=== PATIENT | female | born 1950 | race African-American/Black ===

== ENCOUNTER 2017-05-04 08:00 | Outpatient (CLI) | payer BC | END 2017-05-04 08:01 | disposition home or self-care (01) | LOC: BICULT 08:00 | PROVIDERS: ATTEND Internal Medicine | DX: N18.3 Chronic kidney disease, stage 3 (moderate) (principal) | CPT/HCPCS: 76770 ==

== ENCOUNTER 2017-05-12 08:48 | Outpatient (CLI) | payer BC | END 2017-05-12 08:49 | disposition home or self-care (01) | LOC: BICMAMMO 08:48 | PROVIDERS: ATTEND Internal Medicine | DX: Z12.31 Encounter for screening mammogram for malignant neoplasm of breast (principal); R92.1 Mammographic calcification found on diagnostic imaging of breast; Z80.3 Family history of malignant neoplasm of breast | CPT/HCPCS: 77063; 77067 ==

== ENCOUNTER 2017-06-22 07:50 | Outpatient (CLI) | payer BC ==
--- NOTE | 2017-06-22 11:49 | MRI ---
BRAIN MRI WITHOUT CONTRAST: HISTORY: Allergic rhinitis unspecified. Possible cystic neuroma. Bilateral tinnitus. Sensorineural hearing loss right ear. COMPARISON: None. TECHNIQUE: A brain and IAC MRI is performed without intravenous Gadolinium administration. Multisequential, mul tiplanar imaging is performed. FINDINGS: Noncontrast imaging was performed due to the patient's refusal to undergo IV Gadolinium administratio n. Central arterial flow voids are maintained. Absent restricted diffusion. Note is made of a partiall y empty sella. Along the left temporal and frontal convexity, there appears to be an extraaxial T2 and FLAIR isointe nse mass measuring 1.6 x 3.2 cm. There is mild edema involving the adjacent left temporal and fronta l lobes. There is mild sulcal effacement. No significant obstructing hydrocephalus or midline shift . Basilar cisterns are patent. Additional minimal T2 and FLAIR white matter hyperintensities due to chronic small-vessel ischemic change. Calvarium has a normal marrow signal intensity. Midline brain parenchymal structures are unremarkabl e. There is appropriate T2 signal intensity in bilateral inner ear structures. There is appropriate and symmetric T2 signal intensity in bilateral internal auditory canals, 7th/8th cranial nerve complexes , as well as a 5th cranial nerve complex. Adequate aeration of the visualized sinuses and mastoid air cells. IMPRESSION: 1. Probable extraaxial mass along the left temporal and frontal convexity. Based on imaging feature s, a meningioma is favored. Confirmation with post contrast imaging is recommended. There is associ ated vasogenic edema in the left frontal and temporal lobes. 2. No obvious masses in either internal auditory canal or either inner ear. Evaluation is limited b y the absence of IV contrast. Results of the study discussed with Dr. Bowles 06/22/17 at 9:50 a.m. CODE CR POS: KENISHA
== END 2017-06-22 07:51 | disposition home or self-care (01) ==
LOC: MRI 07:50
PROVIDERS: ATTEND Otolaryngology Plastic Surgery within the Head & Neck
DX: H90.41 Sensorineural hearing loss, unilateral, right ear, with unrestricted hearing on the contralateral side (principal); H93.13 Tinnitus, bilateral; J30.9 Allergic rhinitis, unspecified; R60.0 Localized edema
CPT/HCPCS: 70551; 70553

== ENCOUNTER 2017-08-08 12:59 | Outpatient (CLI) | payer MEDICARE, BC | END 2017-08-08 13:00 | disposition home or self-care (01) | LOC: BICRAD 12:59 | PROVIDERS: ATTEND Internal Medicine | DX: I80.3 Phlebitis and thrombophlebitis of lower extremities, unspecified (principal) ==

== ENCOUNTER 2018-02-02 15:22 | Outpatient (CLI) | payer MEDICARE, BC ==
--- NOTE | 2018-02-02 17:06 | RAD ---
PA AND LATERAL CHEST X-RAY 02/02/18 HISTORY: Cough. COMPARISON: 02/25/16. FINDINGS: The cardiac silhouette is mildly enlarged. The pulmonary vasculature is within normal limits. There i s slight blunting of the left lateral costophrenic angle. This is a stable finding and may be related to combination of overlying soft tissue density and mild pleural and parenchymal scarring. Lungs are otherwise clear. Osseous structures are intact. IMPRESSION: 1. No acute cardiopulmonary process. 2. Mild cardiomegaly. POS: KENISHA
== END 2018-02-02 15:23 | disposition home or self-care (01) ==
LOC: BICRAD 15:22
PROVIDERS: ATTEND Internal Medicine
DX: R05 Cough (principal); I51.7 Cardiomegaly
CPT/HCPCS: 71046

== ENCOUNTER 2018-05-15 11:23 | Outpatient (CLI) | payer MEDICARE, BC | END 2018-05-15 11:24 | disposition home or self-care (01) | LOC: BICMAMMO 11:23 | PROVIDERS: ATTEND Internal Medicine | DX: Z12.31 Encounter for screening mammogram for malignant neoplasm of breast (principal); R92.1 Mammographic calcification found on diagnostic imaging of breast; Z80.3 Family history of malignant neoplasm of breast | CPT/HCPCS: 77063; 77067 ==

== ENCOUNTER 2019-05-16 08:53 | Outpatient (CLI) | payer MEDICARE, BC ==
--- NOTE | 2019-05-16 09:34 | MMO ---
Bilateral MAMMO Bilat Screen [facility]. CLINICAL HISTORY: Patient is 68 years old and is seen for screening. The patient has the following family history of breast cancer: maternal grandmother. The patient has no personal history of cancer. VIEWS: The views performed were: bilateral craniocaudal with tomosynthesis and bilateral mediolateral oblique with tomosynthesis. FILMS COMPARED: The present examination has been compared to prior imaging studies performed at [facility] on 05/07/2015, 05/10/2016, 05/12/2017 and 05/15/2018. This study has been interpreted with the assistance of computer-aided detection. MAMMOGRAM FINDINGS: There are scattered fibroglandular densities. There are stable benign appearing calcifications seen in both breasts. There are also vascular calcifications. There are no suspicious masses, suspicious calcifications, or new areas of architectural distortion. IMPRESSION: THERE IS NO MAMMOGRAPHIC EVIDENCE OF MALIGNANCY. A ROUTINE FOLLOW-UP MAMMOGRAM IN 1 YEAR IS RECOMMENDED. THE RESULTS OF THIS EXAM WERE SENT TO THE PATIENT. ACR BI-RADS Category 2 - Benign finding MAMMOGRAPHY NOTE: 1. A negative mammogram report should not delay a biopsy if a dominant of clinically suspicious mass is present. 2. Approximately 10% to 15% of breast cancers are not detected by mammography. 3. Adenosis and dense breasts may obscure an underlying neoplasm. Reported by: MARILYN JETER MD Electonically Signed: [id number]
== END 2019-05-16 08:54 | disposition home or self-care (01) ==
LOC: BICMAMMO 08:53
PROVIDERS: ATTEND Internal Medicine
DX: Z12.31 Encounter for screening mammogram for malignant neoplasm of breast (principal); Z80.3 Family history of malignant neoplasm of breast
CPT/HCPCS: 77063; 77067

== ENCOUNTER 2020-01-28 13:43 | Outpatient (CLI) | payer MEDICARE, BC ==
--- NOTE | 2020-01-28 14:56 | RAD ---
LUMBAR SPINE 2 VIEWS: Date: 01/28/2020 HISTORY: Back pain. Leg pain. FINDINGS: Lumbar vertebra maintain height. There is a Grade I anterolisthesis at L4-5 with loss of disc space at L4-5. Mild degenerative osteoph ytes in the lumbar vertebra. Moderate facet hypertrophy throughout the lumbar spine, most prominent a t L4-5 and L5-S1. No evidence of spondylolysis. Slight scoliotic curvature with convexity to the left with apex at L3-4. IMPRESSION: Degenerative changes of the lumbar spine as described with Grade I anterolisthesis at L4-5 as describ ed. POS: OFF
== END 2020-01-28 13:44 | disposition home or self-care (01) ==
LOC: BICRAD 13:43
PROVIDERS: ATTEND Psychiatry & Neurology Neurology
DX: M79.604 Pain in right leg (principal); M47.816 Spondylosis without myelopathy or radiculopathy, lumbar region; M43.16 Spondylolisthesis, lumbar region
CPT/HCPCS: 72100

== ENCOUNTER 2020-02-29 13:57 | Outpatient (CLI) | payer MEDICARE, BC ==
--- NOTE | 2020-02-29 15:11 | MRI ---
MRI Lumbar Spine Noncontrast: HISTORY: Lumbar radiculopathy. Chronic low back pain with pain radiating down bilateral legs. COMPARISON: None FINDINGS: The visualized retroperitoneal structures demonstrate a normal appearance. Conus medullaris is normal in morphology and terminates at the L1-2 level. Paravertebral soft tissues have a normal appearance. T11-12: Broad-based disc osteophyte complex which narrows ventral subarachnoid space with encroachmen t on the anterior aspect of the spinal cord. Minimal encroachment on each neural foramen is present. T12-L1: There is no disc bulge or disc herniation. Central spinal canal and neural foramina are paten t. L1-2: There is no disc bulge or disc herniation. Central spinal canal and neural foramina are patent. Facet degenerative changes are present at this level. L2-3: Mild disc osteophyte complex and facet hypertrophic changes and ligamentous thickening. There i s no significant central canal narrowing. The right neural foramen is patent with minimal left-sided neural foraminal narrowing. L3-4: Disc osteophyte complex, facet hypertrophic changes, and ligamentous thickening with findings r esulting in mild to moderate central canal narrowing with mild bilateral neural foraminal narrowing. L4-5: Loss of intervertebral disc height with prominent endplate degenerative changes. Grade 1 edith listhesis of L4 on L5 is present which was seen on views lumbar spine on 01/28/2020. There is a broad-based disc osteophyte complex with small central disc extrusion with disc material seen posteri or to the inferior aspect of the L4 vertebral body. There is severe facet hypertrophic changes and ligamentous thickening at this level. There is very severe narrowing of the central spinal canal as w ell as narrowing of the subarticular zones bilaterally at this level. Moderate to severe right-sided neural foraminal narrowing and mild left-sided neural foraminal narrowing are present. L5-S1: No central disc bulge or disc herniation. Facet hypertrophic changes are seen bilaterally with tiny subcentimeter synovial cyst posterior to each facet joint central spinal canal and neural foramina are patent at this level. IMPRESSION: Degenerative changes in the lumbar spine greatest at the L4-5 level where there is a disc osteophyte complex, central disc extrusion, and ligamentous thickening. These findings result in severe central canal narrowing as well as narrowing of the subarticular zones bilaterally at this level. Mod erate to severe right and mild left-sided neural foraminal narrowing is present.
== END 2020-02-29 13:58 | disposition home or self-care (01) ==
LOC: BICMRI 13:57
PROVIDERS: ATTEND Family Medicine
DX: M47.22 Other spondylosis with radiculopathy, cervical region (principal); G89.4 Chronic pain syndrome; M51.16 Intervertebral disc disorders with radiculopathy, lumbar region; M48.061 Spinal stenosis, lumbar region without neurogenic claudication; M25.78 Osteophyte, vertebrae
CPT/HCPCS: 72148

== ENCOUNTER 2020-06-12 12:49 | Outpatient (CLI) | payer MEDICARE ==
--- NOTE | 2020-06-12 14:40 | BD ---
EXAM: DEXA bone density examination HISTORY: 69-year-old postmenopausal female for screening COMPARISON: None FINDINGS: L1--bone mineral density 1.057 g/sq cm; T score 0.6 L2--bone mineral density 1.089 g/sq cm; T score 0.6 L3--bone mineral density 1.199 g/sq cm; T score 1.0 L4--bone mineral density 1.298 g/sq cm; T score 2.2 Total L1-L4--bone mineral density 1.170 g/sq cm; T score 1.1 Left femoral neck--bone mineral density0.891; T score 0.4 Total proximal left femur--bone mineral density 1.095; T score 1.3 IMPRESSION: Normal bone density.
--- NOTE | 2020-06-12 14:58 | MMO ---
Bilateral MAMMO Bilat Screen [facility]. CLINICAL HISTORY: Patient is 69 years old and is seen for screening. The patient has the following family history of breast cancer: maternal grandmother. The patient has no personal history of cancer. VIEWS: The views performed were: bilateral craniocaudal with tomosynthesis and bilateral mediolateral oblique with tomosynthesis. FILMS COMPARED: The present examination has been compared to prior imaging studies performed at [facility] on 05/10/2016, 05/12/2017, 05/15/2018 and 05/16/2019. This study has been interpreted with the assistance of computer-aided detection. MAMMOGRAM FINDINGS: There are scattered fibroglandular densities. There are stable benign appearing calcifications seen in both breasts. There are also vascular calcifications. There are no suspicious masses, suspicious calcifications, or new areas of architectural distortion. IMPRESSION: THERE IS NO MAMMOGRAPHIC EVIDENCE OF MALIGNANCY. A ROUTINE FOLLOW-UP MAMMOGRAM IN 1 YEAR IS RECOMMENDED. THE RESULTS OF THIS EXAM WERE SENT TO THE PATIENT. ACR BI-RADS Category 2 - Benign finding MAMMOGRAPHY NOTE: 1. A negative mammogram report should not delay a biopsy if a dominant of clinically suspicious mass is present. 2. Approximately 10% to 15% of breast cancers are not detected by mammography. 3. Adenosis and dense breasts may obscure an underlying neoplasm. Reported by: MARILYN JETER MD Electonically Signed: [id number]
== END 2020-06-12 12:50 | disposition home or self-care (01) ==
LOC: BICMAMMO 12:49
PROVIDERS: ATTEND Internal Medicine
DX: Z12.31 Encounter for screening mammogram for malignant neoplasm of breast (principal); Z80.3 Family history of malignant neoplasm of breast; Z78.0 Asymptomatic menopausal state
CPT/HCPCS: 77063; 77067; 77080

== ENCOUNTER 2021-03-16 11:49 | Outpatient (CLI) | payer MEDICARE | END 2021-03-16 11:50 | disposition home or self-care (01) | LOC: RAD 11:49 | PROVIDERS: ATTEND Internal Medicine Critical Care Medicine | DX: R06.00 Dyspnea, unspecified (principal); I51.7 Cardiomegaly | CPT/HCPCS: 71046 ==

== ENCOUNTER 2021-06-15 10:50 | Outpatient (CLI) | payer MEDICARE | END 2021-06-15 10:51 | disposition home or self-care (01) | LOC: BICMAMMO 10:50 | PROVIDERS: ATTEND Internal Medicine | DX: Z12.31 Encounter for screening mammogram for malignant neoplasm of breast (principal); Z80.3 Family history of malignant neoplasm of breast | CPT/HCPCS: 77063; 77067 ==

== ENCOUNTER 2021-11-03 09:34 | Outpatient (CLI) | payer MEDICARE | END 2021-11-03 09:35 | disposition home or self-care (01) | LOC: ULT 09:34 | PROVIDERS: ATTEND Internal Medicine | DX: R60.0 Localized edema (principal) | CPT/HCPCS: 93970 ==

== ENCOUNTER 2022-10-05 13:53 | Outpatient (CLI) | payer MEDICARE | END 2022-10-05 13:54 | disposition home or self-care (01) | LOC: BICULT 13:53 | PROVIDERS: ATTEND Internal Medicine | DX: N18.30 Chronic kidney disease, stage 3 unspecified (principal) | CPT/HCPCS: 76770 ==

== ENCOUNTER 2023-04-06 07:53 | Outpatient (CLI) | payer MEDICARE | END 2023-04-06 07:54 | disposition home or self-care (01) | LOC: BICULT 07:53 | PROVIDERS: ATTEND Internal Medicine | DX: R19.00 Intra-abdominal and pelvic swelling, mass and lump, unspecified site (principal); K83.8 Other specified diseases of biliary tract; R93.2 Abnormal findings on diagnostic imaging of liver and biliary tract; Z90.49 Acquired absence of other specified parts of digestive tract | CPT/HCPCS: 76700; 76856; 93976 ==

== ENCOUNTER 2023-12-26 12:31 | Emergency (ER) | payer MEDICARE | END 2023-12-26 15:06 | disposition home or self-care (01) | LOC: ERS 12:31 | DX: S29.9XXA Unspecified injury of thorax, initial encounter (principal); I10 Essential (primary) hypertension; E11.9 Type 2 diabetes mellitus without complications; W01.0XXA Fall on same level from slipping, tripping and stumbling without subsequent striking against object, initial encounter; Z79.82 Long term (current) use of aspirin; Z79.899 Other long term (current) drug therapy; Z87.891 Personal history of nicotine dependence | CPT/HCPCS: 70450; 72125 ==